=== PATIENT | female | born 1980 ===

== ENCOUNTER → 2023-09-27 16:33 | Outpatient (REF) | payer OTHER, SELFPAY | LOC: RAD 16:33 | PROVIDERS: ATTENDING PHYSICIAN Obstetrics & Gynecology Gynecologic Oncology; FAMILY PHYSICIAN Physician Assistant | DX: N75.0 Cyst of Bartholin's gland (principal); N93.9 Abnormal uterine and vaginal bleeding, unspecified | CPT/HCPCS: 76830; 76856 ==

== ENCOUNTER → 2023-10-07 20:21 | Outpatient (REF) | payer OTHER, SELFPAY | LOC: MRI 20:21 | PROVIDERS: ATTENDING PHYSICIAN Physician Assistant Surgical; FAMILY PHYSICIAN Physician Assistant | DX: N75.0 Cyst of Bartholin's gland (principal); Z12.4 Encounter for screening for malignant neoplasm of cervix; N93.9 Abnormal uterine and vaginal bleeding, unspecified | CPT/HCPCS: 72197; A9575 ==